=== PATIENT | male | born 1980 | race Hispanic/Latino ===

== ENCOUNTER 2017-11-06 10:03 | Outpatient (CLI) | payer OTHER ==
--- NOTE | 2017-11-06 12:24 | RAD ---
RIGHT SHOUDLER ARTHROGRAM: CLINICAL HISTORY: Bicep tendon tear. History of prior surgery. PROCEDURE: Informed consent was obtained. The patient was escorted to the procedural suite and placed in a supi ne position with the right shoulder externally rotated. Soft tissues were prepped and draped in a st andard sterile fashion. Topical anesthesia of the right shoulder was achieved with buffered 1% Lidoc ankita. Subsequently, a 22-gauge needle was uneventfully accessed into the right shoulder joint, small volume of contrast. Subsequently, 9 cc of contrast cocktail containing Gadolinium radiopaque contra st, saline, epinephrine, and Lidocaine was instilled into the right shoulder joint under fluoroscopic guidance. Imaging was stored for documentation. The needle was removed. The patient tolerated the procedure well without evidence of complication. The patient was then transferred to MRI to undergo right shoulder MR arthrogram. Reference that report for further details. IMPRESSION: Technically successful right shoulder arthrogram under fluoroscopic guidance. POS: SHERITA
--- NOTE | 2017-11-06 13:12 | CT ---
CT RIGHT SHOULDER WITHOUT CONTRAST: HISTORY: Biceps tendon tear right shoulder. COMPARISON: None. FINDINGS: The examination was performed after the intraarticular administration of contrast. Biceps tendon: Intraarticular and extraarticular biceps tendon are intact. Labrum: There is a tear of the posterior superior labrum. Rotator Cuff: No contrast is seen within the subacromial or subdeltoid bursa. There is a low-grade undersurface fraying of the mid fibers supraspinatus tendon near the level of the rotator cable. 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 There are also erosions of the distal clavicle and the mesoacromion. The right lung is clear. IMPRESSION: 1. Intact intraarticular and extraarticular biceps tendon. 2. Posterior superior labral tear. 3. 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 This may be the source of the patient's pain. POS: HAYDER
== END 2017-11-06 10:04 | disposition home or self-care (01) ==
LOC: RAD 10:03
PROVIDERS: ATTEND Orthopaedic Surgery
DX: S46.211A Strain of muscle, fascia and tendon of other parts of biceps, right arm, initial encounter (principal); S43.491A Other sprain of right shoulder joint, initial encounter; Z98.890 Other specified postprocedural states
CPT/HCPCS: 23350

== ENCOUNTER 2017-11-21 14:31 | Outpatient (CLI) | payer OTHER ==
[2017-11-21 15:09] LABS: Hemoglobin 16.6 g/dL (14.0-18.0); Mean Corpuscular HGB CONC 34.7 g/dL (32.0-36.0); Mean Corpuscular Hemoglobin 34.4 pg (27.0-31.0); Mean Corpuscular Volume 99.1 fl (80.0-94.0); Mean Platelet Volume 8.8 fL (7.4-10.4); Platelet Count 191 thou/uL (130-400); RBC Distribution Width 11.4 % (11.5-14.5); Red Blood Cell (RBC) Count 4.82 mill/uL (4.70-6.10); White Blood Cell (WBC) Count 9.7 thou/uL (4.8-10.8)
[2017-11-21 15:30] LABS: Anion Gap 12 mmol/L (10-20); BUN (Urea Nitrogen) 10 mg/dL (8.9-20.6); Calc. Creatinine Clearance 0 mL/min (70-130); Calcium 9.4 mg/dL (7.8-10.44); Carbon Dioxide 28 mmol/L (22-29); Chloride 101 mmol/L (98-107); Estimated GFR-MDRD Greater than 90; Glucose 218 mg/dL (70-105); Potassium 4.5 mmol/L (3.5-5.1); Sodium 136 mmol/L (136-145)
== END 2017-11-21 14:32 | disposition home or self-care (01) ==
LOC: LABBT 14:31
PROVIDERS: ATTEND Orthopaedic Surgery
DX: Z01.812 Encounter for preprocedural laboratory examination (principal); S46.119A Strain of muscle, fascia and tendon of long head of biceps, unspecified arm, initial encounter; S43.431A Superior glenoid labrum lesion of right shoulder, initial encounter
CPT/HCPCS: 80048; 85027; 93005; 93010

== ENCOUNTER 2017-11-27 08:09 | Day surgery (SDC) | payer OTHER ==
[2017-11-21 14:57] VITALS: BMI 41.0
[2017-11-27] MEDS ORDERED: Midazolam HCl 2 mg/2 ml Vial ONE ×2 (09:17→09:47)
[2017-11-27] MEDS ORDERED: Fentanyl 100 MCG/2 ML VIAL ONE ×3 (09:17→12:00)
[2017-11-27] MEDS ORDERED: CEFAZOLIN/Water 2 GM/20 ML SYRINGE ONE (09:37)
[2017-11-27] MEDS ORDERED: HYDROmorphone 0.5 MG/0.5 ML SYRINGE ONE ×2 (09:47→10:19)
[2017-11-27] MEDS ORDERED: Lidocaine 1% w/Epinephrine 1:200K 30 ML VIAL ONE (09:54)
[2017-11-27] MEDS ORDERED: Bupivacaine 0.25% HCL 30 ML VIAL ONE (09:54)
--- NOTE | 2017-11-27 12:43 | OP ---
DATE OF PROCEDURE: 11/27/2017 PREOPERATIVE DIAGNOSIS: Right shoulder pain secondary to a biceps tendonitis and superior labral tea r. POSTOPERATIVE DIAGNOSIS: Right shoulder pain secondary to a biceps tendonitis and superior labral te ar. PROCEDURES PERFORMED: 1. Arthroscopy of the right shoulder with superior labral repair. 2. Open biceps tenodesis in the right shoulder. SURGEON: Tim Potter M.D. ANESTHESIA: General. TECHNIQUE: The patient was given preoperative IV antibiotics, taken to the operating room, placed in the supine position. Satisfactory general anesthesia was performed. The patient was then placed in the left lateral decubitus position. All bony prominences were well-padded. Right upper extremity was placed in 15 pounds of traction and the right shoulder and upper extremity were sterilely prepped and draped in the usual fashion. The shoulder was scoped through the usual posterior and anterior p ortals. The patient was noted to have tearing in the superior aspect of the labrum. The biceps tend on was inflamed. A 1 inch incision was made over the bicipital groove on the anterolateral aspect of the arm. Blunt dissection was made down through the deltoid muscle down to the bicipital groove, wh ich was opened and the biceps tendon was identified and tagged with #2 FiberWire. The shoulder joint was then entered again and the biceps tendon was released using the ArthroWand. The tendon was then brought through the incision over the bicipital groove. Hole was made and the Arthrex biceps tenode sis anchor was placed with the biceps tendon in the hole drilled in the bicipital groove. This provi ded excellent fixation for the biceps tendon. A #2 FiberWire was also sutured and soft tissue for ad ditional repair. The wound was then closed using 0 Vicryl for the fascia over the deltoid muscle and the subcutaneous tissue and the skin was closed with 3-0 Rapide. Arthroscopically, the superior lab rum was repaired using 2.9 anchors and #2 FiberWire. Three anchors repaired the labrum and provided good fixation. The undersurface of the rotator cuff looked very healthy. The articular cartilage lo oked very good. During the procedure, all the debris was irrigated out of the knee joint. The instr uments were removed. The portals were closed with 3-0 Rapide and the shoulder was then injected with a combination of 0.25% Marcaine plain and 1% lidocaine with epinephrine, which was mixed 50:50 and a total of 40 mL was injected in and around the right shoulder. A sterile dressing was applied. The right upper extremity was taken out of traction. The patient was awakened, extubated, and transferre d to the recovery room in stable condition. ESTIMATED BLOOD LOSS: Minimal. COMPLICATIONS: None. DISCHARGE MEDICATIONS: Tylenol #4 one every 6 hours as needed for pain, #60 with 1 refill. Follow up in my office next week. The patient was placed in a shoulder immobilizer, which is leave o n to allow tissues to heal.
== END 2017-11-27 13:15 | disposition home or self-care (01) ==
LOC: SDC 08:09
PROVIDERS: ATTEND Orthopaedic Surgery
PROC: 0MM14ZZ Reattachment of Right Shoulder Bursa and Ligament, Percutaneous Endoscopic Approach (ICD-10-PCS; principal; 2017-11-27)
PROC: 0RHJ04Z Insertion of Internal Fixation Device into Right Shoulder Joint, Open Approach (ICD-10-PCS; principal; 2017-11-27)
PROC: 0LS30ZZ Reposition Right Upper Arm Tendon, Open Approach (ICD-10-PCS; principal; 2017-11-27)
DX: S46.111A Strain of muscle, fascia and tendon of long head of biceps, right arm, initial encounter (principal); S43.431A Superior glenoid labrum lesion of right shoulder, initial encounter; E11.9 Type 2 diabetes mellitus without complications; Z79.84 Long term (current) use of oral hypoglycemic drugs; Z79.899 Other long term (current) drug therapy; Z98.890 Other specified postprocedural states
CPT/HCPCS: 96374; C1713; J1170; J2250; J3010; S0020

== ENCOUNTER 2023-05-13 12:00 | Observation (INO) | payer SELFPAY ==
[2023-05-13] MEDS ORDERED: Ondansetron PF 4 MG/2 ML Vial IVP PRN (12:24)
[2023-05-13] MEDS ORDERED: Ondansetron ODT 4 MG TAB PO PRN (12:24)
[2023-05-13] MEDS ORDERED: Nicotine 14 MG PATCH TD PRN (12:24)
[2023-05-13] MEDS ORDERED: Acetaminophen 325 MG TAB PO PRN (12:24)
[2023-05-13] MEDS ORDERED: Calcium Carbonate 500 MG ChewTAB PO PRN (12:24)
[2023-05-13] MEDS ORDERED: Acetaminophen 650 MG Suppository PR PRN (12:24)
[2023-05-13] MEDS ORDERED: Dextrose 50% Abboject 50 ML SYRINGE SLOW IVP PRN (12:34)
[2023-05-13] MEDS ORDERED: HumaLOG 300 UNITS/3 ML VIAL SC PRN ×2 (12:34)
[2023-05-13] MEDS ORDERED: Glucagon 1 MG/ML KIT IM PRN (12:34)
[2023-05-13] MEDS ORDERED: Dextrose 5% in Water 1,000 ML IV PRN (12:34)
[2023-05-13 12:42] VITALS: BMI 37.8
[2023-05-13 12:52] VITALS: TEMP 98.3
[2023-05-13 13:30] LABS: Hemoglobin A1c 6.4 % (4.0-6.0)
[2023-05-13 13:40] LABS: Phosphorus 4.9 mg/dL (2.3-4.7)
[2023-05-13 13:41] LABS: Magnesium 1.7 mg/dL (1.6-2.6)
[2023-05-13] MEDS ORDERED: Magnesium 2 GM/50 ML(in water) 2 GM in Premix Bag 1 BAG IVPB SCH (14:15)
== END 2023-05-13 16:45 | disposition left against medical advice (07) ==
LOC: INTOOBSV 12:00 → IMCU/EMU 12:00
PROVIDERS: ADMIT Family Medicine; ATTEND Family Medicine
DX: I16.0 Hypertensive urgency (principal); E11.9 Type 2 diabetes mellitus without complications; J45.909 Unspecified asthma, uncomplicated; F17.210 Nicotine dependence, cigarettes, uncomplicated
CPT/HCPCS: 36415; 36416; 83036; 83735; 84100; 84443; 93005; 93010; 96374; G0378; J3475